=== PATIENT | male | born 1940 | race Caucasian/White ===

== ENCOUNTER → 2017-03-09 | Outpatient (CLI) | payer MEDICARE ==
[~2017-03-09] MED LIST: ALBU8.5H INH; ALPR-240 PO; ASCO500T9 PO; ASPI-1115 PO; CALC-69 PO; CEPH-583 PO; DOCU-168 PO; EZET10TA17 PO; FAMO-136 PO; FLUT16SP EA NOSTRIL; LEVO25TA9 PO; NAPR220T61 PO; NIAC500T76 PO; OXYC-544 PO; ROSU40TA8 PO; SENN8.6C5 PO; TRAM50TA53 PO; UBID100C10 PO
--- NOTE | 2017-03-09 16:22 | DI ---
Indication: ITS.REASON: M54.16 Radiculopathy, lumbar region PROCEDURE: MRI LUMBAR SPINE W/O CONTRAST: Encounter: Initial Comparison: None Technique: Multiplanar multisequence MR imaging of the lumbar spine was performed without contrast. Findings: Alignment of the lumbar spine is within normal limits. No acute fracture identified. The conus medullaris terminates normally at L1. The paraspinal soft tissues show no acute findings. Segmental analysis: L1-L2: Normal L2-L3: Mild disk bulging resulting in mild central canal narrowing. No significant neural foraminal stenosis. L3-L4: Degenerative facet hypertrophy with ligamentum flavum thickening and an annular disk bulge contributes to severe central canal stenosis with compression of the thecal sac. Mild right and severe left neural foraminal stenosis. Compression of the exiting left L3 nerve root. L4-L5: Annular disk bulge with a superimposed central protrusion and ligamentum flavum thickening contributes to moderate central canal stenosis with compression of the thecal sac. Mild bilateral neural foraminal stenosis. L5-S1: Central disk protrusion with degenerative facet disease contributing to mild central canal stenosis. Disk material extends into the right neural foramen and lateral recess causing severe right neural foraminal stenosis and compression of the exiting right L5 nerve root. There is also extension into the left neural foramen with moderate neural foraminal stenosis. 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 Nerve root impingement on the left at L3-L4 and on the right at L5-S1. .
== END ==
LOC: IMA 14:22
PROVIDERS: ATTEND Internal Medicine
DX: M48.06 Spinal stenosis, lumbar region (principal); M48.07 Spinal stenosis, lumbosacral region; M47.27 Other spondylosis with radiculopathy, lumbosacral region; M51.16 Intervertebral disc disorders with radiculopathy, lumbar region; M51.17 Intervertebral disc disorders with radiculopathy, lumbosacral region